=== PATIENT | male | born 1980 | race Caucasian/White ===

== ENCOUNTER → 2018-07-25 | Outpatient (CLI) | payer BC ==
--- NOTE | 2018-07-25 12:45 | RAD ---
Complete abdominal ultrasound 07/25/2018 9:11 AM Clinical History: Right upper quadrant pain and diarrhea for several months. Technique: Ultrasound examination of the abdomen was performed, and multiple static images were submitted for review. Comparison: None available Findings: Visualized pancreas is unremarkable. Visualized aorta and IVC are unremarkable. The gallbladder is normal in appearance without evidence of wall thickening, stones, or sludge. Portal venous flow is in the normal direction. The common bile duct is nondilated measuring 3 mm in diameter. The liver is normal in size measuring 16.5 cm longitudinally. No focal hepatic lesions are identified. No intrahepatic biliary dilatation is seen. Right kidney is unremarkable in appearance measuring 12.9 cm in length. The left kidney is unremarkable in appearance measuring 12.1 cm in length. Spleen is normal in size measuring 8 cm longitudinally. IMPRESSION: No sonographic evidence of intra-abdominal abnormality is identified Electronically signed by: Shelton Goetz MD (07/25/2018 12:41 PM) [id number]
== END | disposition home or self-care (01) ==
LOC: US 08:40
PROVIDERS: ATTEND Family Medicine
DX: R10.11 Right upper quadrant pain (principal)
CPT/HCPCS: 76700

== ENCOUNTER → 2018-09-06 | Outpatient (CLI) | payer BC | END | disposition home or self-care (01) | LOC: SPEC 12:00 | PROVIDERS: ATTEND Internal Medicine Gastroenterology | DX: R19.7 Diarrhea, unspecified (principal) | CPT/HCPCS: 36415; 87045; 87177; 87493 ==